=== PATIENT | male | born 1950 | race Caucasian/White ===

== ENCOUNTER 2020-08-27 22:26 | Inpatient (IN) | payer MEDICARE, MEDICAID ==
[~2020-08-27] VITALS: Ht 165.1 cm; Wt 111.1 kg
[2020-08-27] MEDS ORDERED: ONDANSETRON HCL/PF 4 MG/2 ML VIAL ONE (22:41)
--- NOTE | 2020-08-27 22:48 | NUR ---
BRANDY , DAUGHTER: [phone]
[2020-08-27] MEDS ORDERED: DILTIAZEM HCL 50 MG IV ONE (22:54)
[2020-08-27 23:00] LABS: BASOPHILS % (AUTO) 0.4 % (0.0-2.0); EOSINOPHILS % (AUTO) 0.8 % (0.0-6.0); HEMATOCRIT 42 % (39-51); HEMOGLOBIN 14.4 g/dL (13.5-17.5); LYMPHOCYTES % (AUTO) 18.2 % (20.0-44.0); MEAN CORPUSCULAR HGB CONC 34 g/dl (31.0-36.0); MEAN CORPUSCULAR VOLUME 91 fL (80-96); MONOCYTES # (AUTO) 0.3 /CMM (0.1-1.30); MONOCYTES % (AUTO) 5.8 % (2.0-12.0); NEUTROPHILS # (AUTO) 4.1 /CMM (1.8-8.9); NEUTROPHILS % (AUTO) 74.8 % (43.0-81.0); PLATELET COUNT (AUTO) 174 /CMM (150-450); RED BLOOD CELL COUNT(AUTO) 4.64 MIL/uL (4.5-6.0); WHITE BLOOD COUNT (AUTO) 5.4 K/uL (4.3-11.0)
[2020-08-27] MEDS ORDERED: ACETAMINOPHEN 325 MG TABLET PO ONE (23:00)
[2020-08-27] MEDS ORDERED: DILTIAZEM HCL 50 MG IV IV ONE (23:00)
[2020-08-27] MEDS ORDERED: IV NS 0.9% 500 ML BAG IV ONE (23:00)
[2020-08-27] MEDS ORDERED: ONDANSETRON HCL/PF 4 MG/2 ML VIAL IVP ONE (23:00)
[2020-08-27] MEDS ORDERED: ACETAMINOPHEN ES 500 MG TABLET ONE (23:07)
[2020-08-27 23:15] LABS: CALCIUM, SERUM 8.8 mg/dL (8.5-10.1); CARBON DIOXIDE 25 mmol/L (21-32); CHLORIDE 106 mmol/L (98-107); CREATININE 0.7 mg/dL (0.6-1.3); GLUCOSE 105 mg/dL (74-106); POTASSIUM 4.1 mmol/L (3.5-5.1); SODIUM SERUM 142 mmol/L (136-145); UREA NITROGEN, BLOOD 11 mg/dL (7-18)
--- NOTE | 2020-08-27 23:20 | NUR ---
ADMISSION PACKET GIVEN TO ADMITTING DEPARTMENT
[2020-08-27 23:27] LABS: B-TYPE NATRIURETIC PEPTIDE 1685 PG/ML (0-125)
[2020-08-28] MEDS ORDERED: CEFTRIAXONE 1GM BAG (ER ONLY) 1 GM/50 ML PIGGYBACK IV ONE
[2020-08-28] MEDS ORDERED: AZITHROMYCIN 500 MG in IV D5W 250 ML IV ONE ×2
--- NOTE | 2020-08-28 00:02 | NUR ---
CALLED NURSING SUP FOR BED
[2020-08-28] MEDS ORDERED: CEFTRIAXONE 1GM BAG (ER ONLY) 50 ML IV ONE (00:09)
[2020-08-28] MEDS ORDERED: AZITHROMYCIN 500 MG VIAL ONE (00:09)
--- NOTE | 2020-08-28 00:12 | NUR ---
REC'D POS COVID RESULTS. AWARE
[2020-08-28] MEDS ORDERED: ENOXAPARIN SODIUM 80 MG/0.8 ML DISP.SYRIN SQ ONE (01:55)
--- NOTE | 2020-08-28 02:35 | NUR ---
REC'D AUTHORIZATION FOR PATIENT TO BE ADMITTED TO [facility] PER IMAGING CENTER MANAGER JUAN J. AUTH #[id number]
--- NOTE | 2020-08-28 02:38 | NUR ---
ATTEMPTED TO CONTACT PATIENT'S DAUGHTER FOR MEDICATION LIST. NO ANSWER, LEFT MESSAGE.
--- NOTE | 2020-08-28 02:43 | NUR ---
DR. GOTTI SPEAKING WITH DR. MILLS REGARDING ADMISSION
--- NOTE | 2020-08-28 04:18 | NUR ---
REPORT GIVEN TO FIORELLA
[2020-08-28] MEDS ORDERED: METH10TA7 PO (04:26)
--- NOTE | 2020-08-28 05:16 | NUR ---
TELE2/RN RECEIVED PATIENT FROM [facility]. PATIENT WAS AWAKE, ALERT, ORIENTED, CUBAN SPEAKING ONLY, COMFORTABLE, NO C/O PAIN NO DISTRESS NOTED, UNABLE TO OBTAIN ADMISSION INFORMATION THE PATIENT SPEAKS CUBAN ONLY, WITH LITTLE CITIZEN OF [place], PHYSICAL ASSESSMENT DONE, FALL PRECAUTIONS PER PROTOCOL IMPLEMENTED, TAUGHT THE USE OF CALL LIGHT PLACED AT BEDSIDE WITHIN REACH, WILL MONITOR..
[2020-08-28] MEDS ORDERED: ZOLPIDEM TARTRATE 5 MG TABLET PO PRN (05:30)
[2020-08-28] MEDS ORDERED: ACETAMINOPHEN 325 MG TABLET PO PRN (05:30)
[2020-08-28 05:41] VITALS: BP 113/82
[2020-08-28 08:00] VITALS: BP_SYST 120; BP_SYST 144; BP_DIAS 81; BP_DIAS 82
--- NOTE | 2020-08-28 08:00 | NUR ---
TELE2/RN RECEIVED PATIENT WAS AWAKE, ALERT, ORIENTED, DUTCH SPEAKING ONLY, COMFORTABLE, NO C/O PAIN NO DISTRESS,NO SOB ON ROOM AIR NOTED, PATIENT SPEAKS DUTCH/ANDORRAN ONLY, WITH LITTLE GERMAN, AMBULATES AD MERRY WITH STEADY GAIT.WITH BRP. TAUGHT THE USE OF CALL LIGHT PLACED AT BEDSIDE WITHIN REACH, WILL MONITOR..
[2020-08-28 08:31] LABS: BASOPHILS % (AUTO) 0.7 % (0.0-2.0); EOSINOPHILS % (AUTO) 0.6 % (0.0-6.0); HEMATOCRIT 42 % (39-51); HEMOGLOBIN 13.7 g/dL (13.5-17.5); LYMPHOCYTES # (AUTO) 0.8 /CMM (0.8-4.8); LYMPHOCYTES % (AUTO) 36.7 % (20.0-44.0); MEAN CORPUSCULAR HGB CONC 33 g/dl (31.0-36.0); MEAN CORPUSCULAR VOLUME 93 fL (80-96); MONOCYTES # (AUTO) 0.3 /CMM (0.1-1.30); MONOCYTES % (AUTO) 14.8 % (2.0-12.0); NEUTROPHILS # (AUTO) 1.1 /CMM (1.8-8.9); NEUTROPHILS % (AUTO) 47.2 % (43.0-81.0); PLATELET COUNT (AUTO) 167 /CMM (150-450); RED BLOOD CELL COUNT(AUTO) 4.44 MIL/uL (4.5-6.0); WHITE BLOOD COUNT (AUTO) 2.2 K/uL (4.3-11.0)
[2020-08-28 09:09] LABS: THYROID STIMULATING HORMONE < 0.007 uIU/mL (0.358-3.74)
[2020-08-28 09:15] LABS: CALCIUM, SERUM 9.1 mg/dL (8.5-10.1); CARBON DIOXIDE 26 mmol/L (21-32); CHLORIDE 109 mmol/L (98-107); CREATININE 0.7 mg/dL (0.6-1.3); GLUCOSE 95 mg/dL (74-106); POTASSIUM 3.9 mmol/L (3.5-5.1); SODIUM SERUM 144 mmol/L (136-145); UREA NITROGEN, BLOOD 11 mg/dL (7-18)
[2020-08-28] MEDS ORDERED: METH5TAB6 PO (09:21)
[2020-08-28] MEDS ORDERED: DEXAMETHASONE SOD PHOSPHATE 10 MG/ML VIAL IV SCH (09:30)
[2020-08-28] MEDS: METHIMAZOLE (5MG) 5 MG TABLET PO SCH (10:59)
[2020-08-28] MEDS: APIXABAN 5 MG TABLET PO SCH ×2 (10:59→16:52)
[2020-08-28] MEDS: METOPROLOL TARTRATE 25 MG TABLET PO SCH ×2 (11:00→21:41)
[2020-08-28 13:48] VITALS: BP 120/82
[2020-08-28 16:00] VITALS: BP 132/80
--- NOTE | 2020-08-28 18:30 | NUR ---
PT ALERT IN BED ORIENTED X 4 NO SOB NO PAIN OR DISCOMFORT NOTED OR REPORTED BY PT. ALL NURSING NEED MET CALL LIGHT WITHIN REACH WILL CONTINUE TO MONITOR.
[2020-08-28] MEDS ORDERED: PNEUMOCOCCAL 23-VAL P-SAC VAC 0.5 ML VIAL SQ ONE (19:00)
[2020-08-28] MEDS ORDERED: INFLUENZA VACCINE 2020-21 0.5 ML DISP.SYRIN IM ONE (19:00)
--- NOTE | 2020-08-28 19:00 | NUR ---
COVID PCR POSITIVE RESULT- NOTIFIED DR MILLS AND DAUGHTER,FABRICE MADE AWARE.
--- NOTE | 2020-08-28 19:28 | NUR ---
TELE2/RN PT RECEIVED IN BED ALERT ORIENTEDX4 NO SOB PAIN OR DISCOMFORT NOTED OR VERBALIZED. ON REGULAR DIET. WILL CONTINUE TO MONITOR
[2020-08-28 20:00] VITALS: BP 111/87
--- NOTE | 2020-08-28 20:00 | NUR ---
TELE/RN OPENING NOTE Patient asleep in bed, A/O x4, ambulatory. Tele monitor reading a-fib in the 90s. Breathing even, unlabored, on room air. No acute distress or SOB noted. No JVD. CRP <3seconds. Brachial and pedal pulses 2+, symmetrical. Skin is warm, pink, dry, appropriate for ethnicity, intact. IV site left wrist 20 saline locked, patent and intact. No redness or infiltration. Patient on regular diet, appetite is good. Patient void via BRP. Urine output clear, yellow, without difficulty. Afebrile. PERRLA. Patient denies pain, nausea, vomiting, diarrhea. Bed in low position, wheels locked, side rails up x2, call light within reach.
[2020-08-28] MEDS ORDERED: CEFTRIAXONE 1 G in IV D5W 50 ML IV SCH (21:00)
[2020-08-29] VITALS: BP_SYST 108; BP_SYST 112; BP_DIAS 58; BP_DIAS 75
[2020-08-29 03:59] VITALS: BP 133/69
[2020-08-29 04:00] VITALS: BP 133/69
[2020-08-29 06:37] LABS: BASOPHILS % (AUTO) 0.3 % (0.0-2.0); HEMATOCRIT 42 % (39-51); HEMOGLOBIN 14.1 g/dL (13.5-17.5); LYMPHOCYTES # (AUTO) 0.7 /CMM (0.8-4.8); LYMPHOCYTES % (AUTO) 33.3 % (20.0-44.0); MEAN CORPUSCULAR HGB CONC 34 g/dl (31.0-36.0); MEAN CORPUSCULAR VOLUME 91 fL (80-96); MONOCYTES # (AUTO) 0.4 /CMM (0.1-1.30); MONOCYTES % (AUTO) 19.6 % (2.0-12.0); NEUTROPHILS # (AUTO) 1.1 /CMM (1.8-8.9); NEUTROPHILS % (AUTO) 46.8 % (43.0-81.0); PLATELET COUNT (AUTO) 158 /CMM (150-450); RED BLOOD CELL COUNT(AUTO) 4.57 MIL/uL (4.5-6.0); WHITE BLOOD COUNT (AUTO) 2.3 K/uL (4.3-11.0)
[2020-08-29 06:50] LABS: CALCIUM, SERUM 9.2 mg/dL (8.5-10.1); CREATININE 0.6 mg/dL (0.6-1.3); POTASSIUM 4.4 mmol/L (3.5-5.1)
--- NOTE | 2020-08-29 07:42 | NUR ---
TELE/RN CLOSING NOTE Patient asleep in bed, A/O x4, ambulatory. Tele monitor reading a-fib in the 80s. Breathing even, unlabored, on room air. No acute distress or SOB noted. Skin is warm, pink, dry, appropriate for ethnicity, intact. IV site left wrist 20 saline locked, patent and intact. No redness or infiltration. Patient void via BRP. Urine output clear, yellow, without difficulty. Patient denies pain, nausea, vomiting, diarrhea. Bed in low position, wheels locked, side rails up x2, call light within reach.
[2020-08-29 08:00] VITALS: BP 145/94
[2020-08-29] MEDS ORDERED: METO25TA20 PO (09:03)
[2020-08-29] MEDS ORDERED: APIX5TAB PO (09:03)
[2020-08-29 09:19] LABS: THYROID STIMULATING HORMONE < 0.007 uIU/mL (0.358-3.74)
[2020-08-29] MEDS ORDERED: METH5POW5 MC (09:23)
[2020-08-29] MEDS: METOPROLOL TARTRATE 25 MG TABLET PO SCH (09:26)
[2020-08-29] MEDS: METHIMAZOLE (5MG) 5 MG TABLET PO SCH (09:26)
[2020-08-29] MEDS: APIXABAN 5 MG TABLET PO SCH (09:27)
[2020-08-29 12:00] VITALS: BP 123/83
--- NOTE | 2020-08-29 14:09 | NUR ---
J2EE PROGRAMMER NOTES DISCHARGE EDUCATION PROVIDED TO PATIENTS DAUGHTER OVER THE PHONE PER PATIENTS REQUEST. VERBALIZED UNDERSTANDING. DISCHARGE INSTRUCTIONS ALSO PROVIDED TO PATIENT. WILL CONTINUE TO MONITOR AND COMPLETE DISCHARGE.
--- NOTE | 2020-08-29 14:15 | NUR ---
UNDERWEAR HEMMER NOTES DETAILED INSTRUCTIONS GIVEN FOR ISOLATION BOTH TO PATIENT AND PATIENTS FAMILY.
--- NOTE | 2020-08-29 14:15 | NUR ---
BUTADIENE CONVERTER HELPER NOTES PATIENT DISCHARGED HOME WITH SON. DISCHARGE TEACHING PROVIDED TO PATIENT AND PATIENTS SON, VERBALIZED UNDERSTANDING. PATIENT INFORMED OF DISCHARGE MINDA WHICH WAS PROVIDED BY CASE MANGER. ALL BELONGINGS ACCOUNTED, BELONGING LIST SIGNED. PRESCRIPTION GIVEN TO PATIENT. MD AWARE OF ALL ABNORMAL LABS AND TESTS. PERIPHERAL IV REMOVED WITH MINIMAL BLEEDING. ID BAND REMOVED. PATIENT ESCORTED TO CAR .
== END 2020-08-29 14:15 | disposition home or self-care (01) | DRG 137 ==
LOC: ER 22:29 → TELE2 08-28 04:20
PROVIDERS: ADMIT Internal Medicine; ATTEND Internal Medicine
DX: U07.1 COVID-19 (principal); Z68.41 Body mass index [BMI] 40.0-44.9, adult; J12.89 Other viral pneumonia; I48.91 Unspecified atrial fibrillation; I50.9 Heart failure, unspecified; E66.9 Obesity, unspecified; E05.90 Thyrotoxicosis, unspecified without thyrotoxic crisis or storm; Z79.890 Hormone replacement therapy; J98.11 Atelectasis; Z91.14 Patient's other noncompliance with medication regimen
CPT/HCPCS: 36415; 71045-TC; 80048-TC; 83605-TC; 83880; 84439-TC; 84443-TC; 84484-TC; 85025-TC; 85378-TC; 86140-TC; 87040-TC; 87081-TC; 90732; 93307-TC; C9803; G0378; J0456; J0696; J1100; J1650; J2405; J3490; J7040; J7060; Q2036; U0003